=== PATIENT | male | born 1985 | race American Indian/Alaskan Native ===

== ENCOUNTER 2020-09-05 00:10 | Emergency (ER) | payer SELFPAY ==
[2020-09-05] MEDS ORDERED: HALOPERIDOL LACTATE 5 MG/1 ML INJ IM PRN (00:47)
[2020-09-05] MEDS ORDERED: LORazepam 2 MG/ML VIAL IM PRN (00:47)
[2020-09-05] MEDS ORDERED: DEXTROSE 50% IN WATER (25GM) 50 ML SYRINGE IV PRN (00:47)
--- NOTE | 2020-09-05 00:53 | Emergency Department Report ---
ED Alcohol HPI - General Chief Complaint: Alcohol Stated Complaint: ALTERED MENTAL STATUS Time Seen by Provider: 09/05/20 00:40 Source: EMS ( EMS documentation not available at time of chart dictation ), RN notes reviewed Mode of arrival: Stretcher Limitations: Altered Mental Status - History of Present Illness Initial Comments: The patient was evaluated in the emergency department for symptoms described in the history of present illness. He/she was evaluated in the context of the global COVID-19 pandemic, which necessitated consideration that the patient might be at risk for infection with the virus that causes COVID-19. Institutional protocols and algorithms that pertain to the evaluation of patients at risk for COVID-19 are in a state of rapid change based on information released by regulatory bodies including the CDC and federal and stat e organizations. These policies and algorithms were followed during the patient's care in the emergency department. Please note that these policies, procedures and recommendations changed on a rapid basis. The patient is a 34-year-old gentleman. He is not known to myself previously. History entirely obtained from discussion with nursing team, who received report from EMS. Apparently, the patient was stumbling in somebody's yard, apparently intoxicated, and 911 was activated. For unclear reasons, police have requested medical evaluation, and thus an ambulance was called. The patient was apparently belligerent and disruptive/combative in the ambulance, and received 5 mg of Versed. He is currently sleeping, sedated, breathing spontaneously. It is unknown if there is any trauma. It is unknown what the patient drank tonight. It is unknown if there are coingestions. Patient is not accompanied by friends or family at this time for additional information or collateral information. MD Complaint: alcohol intoxication Last Drink: unknown Treatments Prior to Arrival: benzodiazepines - Related Data Previous Rx's Medication Instructions Recorded Last Taken Type Potassium Chloride 20 meq PO QDAY #15 packet 09/05/20 Unknown Rx Allergies Allergy/AdvReac Type Severity Reaction Status Date / Time Unable to Assess Allergy Unverified 09/05/20 02:27 ED Review of Systems ROS: Stated complaint: ALTERED MENTAL STATUS Other details as noted in HPI Comment: Unobtainable due to pts medical conditions ED Past Medical Hx - Medications Home Medications: Home Medications Medication Instructions Recorded Confirmed Last Taken Type Potassium Chloride 20 meq PO QDAY #15 packet 09/05/20 Unknown Rx ED Physical Exam - General Limitations: Altered Mental Status, Physical Limitation General appearance: appears intoxicated, lethargic - Head Head exam: Present: atraumatic, normocephalic - Eye Eye exam: Present: normal appearance, PERRL - ENT ENT exam: Present: normal exam, normal orophraynx, mucous membranes moist, normal external ear exam - Neck Neck exam: Present: normal inspection. Absent: tenderness, meningismus - Respiratory Respiratory exam: Present: normal lung sounds bilaterally. Absent: respiratory distress, wheezes, rales, rhonchi, stridor - Cardiovascular Cardiovascular Exam: Present: regular rate, normal rhythm, normal heart sounds. Absent: bradycardia, tachycardia, irregular rhythm, systolic murmur, diastolic murmur, rubs, gallop - GI/Abdominal GI/Abdominal exam: Present: soft. Absent: distended, tenderness, guarding, rebound, rigid, pulsatile mass - Rectal Rectal exam: Present: deferred - Extremities Exam Extremities exam: Present: normal inspection, other (2+ pulses noted in the bilateral upper and lower extremities. There is no palpable cord. negative Homans sign. Muscular compartments are soft. The pelvis is stable.). Absent: tenderness, pedal edema, calf tenderness - Back Exam Back exam: Present: normal inspection. Absent: tenderness, CVA tenderness (R), CVA tenderness (L), paraspinal tenderness, vertebral tenderness - Neurological Exam Neurological exam: Present: altered (The patient is breathing spontaneously. The patient occasionally moves 4 extremities.) - Skin Skin exam: Present: warm, dry, intact, normal color. Absent: rash ED Course Vital Signs 09/05/20 09/05/20 09/05/20 00:36 00:46 02:21 Temperature 97.9 F Pulse Rate 96 H 82 Respiratory 12 15 Rate Blood Pressure 107/74 Blood Pressure 107/74 [left arm] O2 Sat by Pulse 94 94 98 Oximetry - Reevaluation(s) Reevaluation #1: 09/05/20 00:50 Differential diagnosis, including but not limited to: Alcohol intoxication Assessment and plan: 34-year-old gentleman with probable alcohol intoxication, who was apparently agitated in the field, status post 5 mg of Versed IV. Now sleeping, breathing spontaneously. No additional history is available at this time. Check CT scan of the brain and cervical spine, given uncertainty of blunt trauma. Obtain EKG, x-ray the chest, and appropriate laboratory studies to exclude time sensitive toxicologic ingestions. Place patient on egg trayer, initiate hold status, as needed Haldol/Ativan, Accu-Cheks every 1 hour, as needed glucose. If no emergent medical condition identified, anticipate observation in this department pending clinical sobriety. Reevaluation #2: 09/05/20 04:56 Laboratory studies fairly unremarkable, with the exception of minimal hypokalemia, and elevated blood alcohol level. X-ray of the chest, CT scan of the brain and cervical spine negative for acute findings. Patient will be observed in this department until clinical sobriety. ED Medical Decision Making - Lab Data Result diagrams: 09/05/20 00:57 09/05/20 00:57 Vital Signs 09/05/20 00:36 Temperature 97.9 F Pulse Rate 96 H Respiratory 12 Rate Blood Pressure 107/74 [left arm] O2 Sat by Pulse 94 Oximetry - EKG Data -: EKG Interpreted by [facility] EKG shows normal: sinus rhythm Rate: normal - EKG Data When compared to previous EKG there are: previous EKG unavailable 09/05/20 00:56 Sinus rhythm, 84 bpm, normal axis, QTC 436 ms, high left ventricular voltage, incomplete right bundle branch block, borderline atrial enlargement. The EKG is abnormal. The EKG is not a STEMI. There is no prior for comparison. - Radiology Data Radiology results: pending, report reviewed, image reviewed CHEST 1 VIEW INDICATION: intox ams, s/p versed. COMPARISON: None FINDINGS: SUPPORT DEVICES: None. HEART: Within normal limits. LUNGS/PLEURA: No acute air space or interstitial disease. ADDITIONAL FINDINGS: None. IMPRESSION: 1. No acute findings. Signer Name: Pedro Pablo Juarez MD Signed: 09/05/2020 12:31 AM Workstation Name: [id number] CT head without contrast INDICATION : intox, ams, uncertain if blunt trauma. TECHNIQUE: Axial imaging performed from the skull apex through the skull base without the use of contrast. All CT scans at this location are performed using CT dose reduction for ALARA by means of automated exposure control. COMPARISON: None FINDINGS: Parenchyma: No acute intracranial hemorrhage or parenchymal abnormality. Ventricles: Ventricles are normal in size and appear symmetric. Soft tissues: Soft tissues including the orbits appear normal. Bones: No acute osseous abnormality. Sinuses: Sinuses and mastoid air cells are clear. IMPRESSION: No acute abnormality. Signer Name: Pedro Pablo Juarez MD Signed: 12:[address] cervical spine spine without contrast INDICATION: intox, ams, uncertain if blunt trauma. TECHNIQUE: Axial imaging performed through the cervical without the use of contrast. Sagittal and coronal reconstructed images were also reviewed. All CT scans at this location are performed using CT dose reduction for ALARA by means of automated exposure control. COMPARISON: None FINDINGS: Alignment: Spinal alignment is normal. Bones: There is no acute osseous abnormality. Mild multilevel discogenic DJD is present. Soft tissues: No acute or significant incidental soft tissue abnormality. IMPRESSION: No acute abnormality. Signer Name: Pedro Pablo Juarez MD Signed: 09/05/2020 12:43 AM Workstation Name: [id number] Critical care attestation.: If time is entered above; I have spent that time in minutes in the direct care of this critically ill patient, excluding procedure time. ED Disposition Clinical Impression: Hypokalemia Alcohol intoxication Qualifiers: Complication of substance-induced condition: uncomplicated Qualified Code(s): F10.920 - Alcohol use, unspecified with intoxication, uncomplicated Disposition: DC-01 TO HOME OR SELFCARE Is pt being admited?: No Does the pt Need Aspirin: No Condition: Stable Instructions: Binge-Drinking Information, Adult Additional Instructions: Recommend that patient not drive or operate motor vehicles for the next 6 months, or until cleared to do so by a primary care doctor. Recommend avoidance of alcohol, tobacco, smoke products and all recreational/illicit drugs. Recommend the patient take a multivitamin [id number] on a daily basis. Recommend that patient follow-up with a primary care doctor within the next week. Please return to the emergency room right away with new pain, worsened pain, migration of pain, rectal vomiting, change in mental status, confusion, inability to tolerate liquid feeds, new, worsened or different symptoms not present on the initial emergency room evaluation. Prescriptions: Potassium Chloride 20 meq PO QDAY #15 packet Referrals: [facility] [Provider Group] - 3-5 Days [facility] [Outside] - 3-5 Days
[2020-09-05 00:59] VITALS: BP 107/74
[2020-09-05 01:14] LABS: Hematocrit 42.4 % (35.5-45.6); Hemoglobin 14.3 gm/dl (11.8-15.2)
[2020-09-05 01:33] LABS: Blood Urea Nitrogen 7 mg/dL (9-20); Calcium 8.4 mg/dL (8.4-10.2); Hemolysis Index 13
[2020-09-05 01:34] LABS: BUN/Creatinine Ratio 10
--- NOTE | 2020-09-05 01:35 | XRay Report ---
CHEST 1 VIEW INDICATION: intox ams, s/p versed. COMPARISON: None FINDINGS: SUPPORT DEVICES: None. HEART: Within normal limits. LUNGS/PLEURA: No acute air space or interstitial disease. ADDITIONAL FINDINGS: None. IMPRESSION: 1. No acute findings. Signer Name: Pedro Pablo Juarez MD Signed: 09/05/2020 1:31 AM Workstation Name: [id number]
--- NOTE | 2020-09-05 01:46 | Cat Scan Report ---
CT head without contrast INDICATION : intox, ams, uncertain if blunt trauma. TECHNIQUE: Axial imaging performed from the skull apex through the skull base without the use of con trast. All CT scans at this location are performed using CT dose reduction for ALARA by means of aut omated exposure control. COMPARISON: None FINDINGS: Parenchyma: No acute intracranial hemorrhage or parenchymal abnormality. Ventricles: Ventricles are normal in size and appear symmetric. Soft tissues: Soft tissues including the orbits appear normal. Bones: No acute osseous abnormality. Sinuses: Sinuses and mastoid air cells are clear. IMPRESSION: No acute abnormality. Signer Name: Pedro Pablo Juarez MD Signed: 09/05/2020 1:42 AM Workstation Name: [id number]
--- NOTE | 2020-09-05 01:47 | Cat Scan Report ---
CT cervical spine spine without contrast INDICATION: intox, ams, uncertain if blunt trauma. TECHNIQUE: Axial imaging performed through the cervical without the use of contrast. Sagittal and c oronal reconstructed images were also reviewed. All CT scans at this location are performed using CT dose reduction for ALARA by means of automated exposure control. COMPARISON: None FINDINGS: Alignment: Spinal alignment is normal. Bones: There is no acute osseous abnormality. Mild multilevel discogenic DJD is present. Soft tissues: No acute or significant incidental soft tissue abnormality. IMPRESSION: No acute abnormality. Signer Name: Pedro Pablo Juarez MD Signed: 09/05/2020 1:43 AM Workstation Name: [id number]
[2020-09-05] MEDS ORDERED: THIAMINE IV ONE (01:54)
[2020-09-05] MEDS ORDERED: MULTIPLE VITAMIN IV ONE (01:54)
[2020-09-05] MEDS ORDERED: [UNRECOGNIZED DRUG - OTHER] IV ONE (01:54)
[2020-09-05] MEDS ORDERED: FOLIC ACID IV ONE (01:54)
[2020-09-05] MEDS ORDERED: POTASSIUM CHLORIDE 10 MEQ 10 MEQ/100 ML BAG IV SCH (02:00)
== END 2020-09-05 09:14 | disposition home or self-care (01) ==
LOC: ED 00:10
DX: F10.929 Alcohol use, unspecified with intoxication, unspecified (principal); Z79.899 Other long term (current) drug therapy
CPT/HCPCS: 36415; 70450; 71045; 72125; 80048; 82550; 82962; 83735; 85014; 85018; 85049; 93005; 96365; 96366; 99285; J2060; J3411; J3480; J7030; 80320; G0480

== ENCOUNTER 2021-05-14 11:08 | Emergency (ER) | payer SELFPAY ==
--- NOTE | 2021-05-14 12:54 | Emergency Department Report ---
ED Alcohol HPI - General Chief Complaint: Psych Stated Complaint: POST ICTAL/SEIZURE AND ETOH Time Seen by Provider: 05/14/21 11:59 Source: EMS Mode of arrival: Wheelchair Limitations: No Limitations - History of Present Illness Initial Comments: Chief complaint: "I probably drink too much." HPI: This is a 35-year-old male with history of alcohol dependence who presents with alcohol intoxication. Patient was found laying next to a convenience store surrounded by bottles of alcohol. Patient denies suicidal homicidal ideation. He denies injury or trauma. He denies any medical concerns. He desires to be discharged. MD Complaint: alcohol intoxication Last Drink: just [employer] Chronic Alcohol Use: Yes Previous Visits for Alcohol Intoxication?: Yes Recent Trauma: No Treatments Prior to Arrival: other (EMS transport) - Related Data Previous Rx's Medication Instructions Recorded Last Taken Type Potassium Chloride 20 meq PO QDAY #15 packet 09/05/20 Unknown Rx Allergies Allergy/AdvReac Type Severity Reaction Status Date / Time Unable to Assess Allergy Unverified 09/05/20 02:27 ED Review of Systems ROS: Stated complaint: POST ICTAL/SEIZURE AND ETOH Other details as noted in HPI Comment: All other systems reviewed and negative Constitutional: denies: fever Respiratory: denies: cough, shortness of breath Cardiovascular: denies: chest pain Gastrointestinal: denies: abdominal pain, nausea, vomiting Psychiatric: denies: homicidal thoughts, suicidal thoughts ED Past Medical Hx - Past Medical History Previous Medical History?: No - Surgical History Past Surgical History?: No - Social History Smoking Status: Current Every Day Smoker Substance Use Type: Alcohol, Marijuana - Medications Home Medications: Home Medications Medication Instructions Recorded Confirmed Last Taken Type Potassium Chloride 20 meq PO QDAY #15 packet 09/05/20 Unknown Rx ED Physical Exam - General Limitations: No Limitations General appearance: alert, in no apparent distress - Head Head exam: Present: atraumatic, normocephalic - Eye Eye exam: Present: normal appearance - ENT ENT exam: Present: mucous membranes moist - Neck Neck exam: Present: normal inspection, full ROM - Respiratory Respiratory exam: Present: normal lung sounds bilaterally. Absent: respiratory distress, wheezes, rales, rhonchi, stridor - Cardiovascular Cardiovascular Exam: Present: regular rate, normal rhythm, normal heart sounds. Absent: systolic murmur, diastolic murmur, rubs, gallop - GI/Abdominal GI/Abdominal exam: Present: soft, normal bowel sounds. Absent: distended, tenderness, guarding - Rectal Rectal exam: Present: deferred - Extremities Exam Extremities exam: Present: normal inspection - Back Exam Back exam: Present: normal inspection - Neurological Exam Neurological exam: Present: alert, oriented X3 - Psychiatric Psychiatric exam: Present: normal affect, normal mood - Skin Skin exam: Present: warm, dry, intact, normal color. Absent: rash ED Medical Decision Making - Medical Decision Making Acute alcohol intoxication: Patient admitted to ingesting alcohol prior to arrival. He became upset after speaking with his girlfriend. He became aggressive towards staff members out of anger. He promptly apologized after being placed in seclusion. He repeatedly asked to be discharged. He cooperated with discharge. He is alert and oriented x4. He has steady gait. He has access to transportation. Critical care attestation.: If time is entered above; I have spent that time in minutes in the direct care of this critically ill patient, excluding procedure time. ED Disposition Clinical Impression: Acute alcohol intoxication Disposition: DC-01 TO HOME OR SELFCARE Is pt being admited?: No Does the pt Need Aspirin: No Condition: Stable [facility]
[2021-05-14 13:02] LABS: Amphetamine Screen,Urine Negative; Benzodiazepines Screen,Urine Negative; Cannabinoid Screen,Urine Negative; Methadone Screen,Urine Negative; Opiate Screen,Urine Negative
[2021-05-14 13:06] LABS: Bilirubin,Urine NEG (Negative); Blood,Urine NEG (Negative); Color,Urine Colorless (Yellow); Protein,Urine <15 mg/dL mg/dL (Negative); Urobilinogen,Urine < 2.0 mg/dL (<2.0)
[2021-05-14 13:22] LABS: Cocaine Screen,Urine Positive
== END 2021-05-14 12:59 | disposition home or self-care (01) ==
LOC: ED 11:08
DX: F10.929 Alcohol use, unspecified with intoxication, unspecified (principal); F17.200 Nicotine dependence, unspecified, uncomplicated; F12.90 Cannabis use, unspecified, uncomplicated; Z79.899 Other long term (current) drug therapy
CPT/HCPCS: 80307; 81001